=== PATIENT | male | born 1945 | race Caucasian/White ===

== ENCOUNTER 2021-12-05 11:32 | Inpatient (IN) | payer OTHER ==
[2021-12-05] VITALS (7 sets, daily range): BP systolic 88–100; BP diastolic 47–57
[~2021-12-05] VITALS: Ht 170.2 cm; Wt 79.4 kg
--- NOTE | 2021-12-05 11:34 | NUR ---
[id number] FRM HOME, SYMCOPAL EPISODE "COLLAPSED IN ELEVATOR" SYSTOLIC 80'S NOT ABLE TO EAT SINCE YESTERDAY. BS 229. PATIENT RECEIVED APPROXIMATELY 100ML OF NS RN ANGIOGRAPHY. TO ER BED 11, HOOKED TO MONITOR, NOTED LOW BLOOD PRESSURE, CHANGED TO HOSP GOWN, WARM BLANKET PROVIDED. PATIENT AAO x 3. NOTED WITH NEPHRO-ILEOSTOMY WITH BAG, DRAINING LIGHT YELLOW URINE. KEPT WARM AND COMFORTABLE. AWAITING MD ZAPATA
--- NOTE | 2021-12-05 11:35 | NUR ---
DR HARRINGTON AT BEDSIDE
--- NOTE | 2021-12-05 11:55 | NUR ---
[id number] PT 76 yrs female came by heidy from home awake and fallow command respiration spont c/o low bp
[2021-12-05 12:27] LABS: BASOPHILS % (AUTO) 0.1 % (0.0-2.0); EOSINOPHILS % (AUTO) 0.1 % (0.0-6.0); LYMPHOCYTES # (AUTO) 1.1 K/uL (0.8-4.8); LYMPHOCYTES % (AUTO) 9.8 % (20.0-44.0); MEAN CORPUSCULAR HGB CONC 32 g/dl (31.0-36.0); MEAN CORPUSCULAR VOLUME 97 fL (80-96); MONOCYTES # (AUTO) 0.6 K/uL (0.1-1.30); MONOCYTES % (AUTO) 5.5 % (2.0-12.0); NEUTROPHILS # (AUTO) 9.6 K/uL (1.8-8.9); NEUTROPHILS % (AUTO) 84.5 % (43.0-81.0); PLATELET COUNT (AUTO) 267 K/uL (150-450); WHITE BLOOD COUNT (AUTO) 11.3 K/uL (4.3-11.0)
[2021-12-05 12:31] LABS: RED BLOOD CELL COUNT(AUTO) 1.81 MIL/uL (4.5-6.0)
[2021-12-05 12:34] LABS: HEMATOCRIT 18 % (39-51); HEMOGLOBIN 5.5 g/dL (13.5-17.5)
--- NOTE | 2021-12-05 12:36 | NUR ---
BLOOD DROW BY LAB TACH
[2021-12-05 12:54] LABS: CALCIUM, SERUM 8.5 mg/dL (8.5-10.1); CARBON DIOXIDE 20 mmol/L (21-32); CHLORIDE 102 mmol/L (98-107); CREATININE 1.3 mg/dL (0.6-1.3); GLUCOSE 164 mg/dL (74-106); POTASSIUM 4.2 mmol/L (3.5-5.1); SODIUM SERUM 133 mmol/L (136-145); UREA NITROGEN, BLOOD 45 mg/dL (7-18)
[2021-12-05 12:59] LABS: ALANINE AMINOTRANSFERASE 20 U/L (12-78); ALBUMIN 2.3 g/dL (3.4-5.0); ALKALINE PHOSPHATASE 104 U/L (46-116); ASPARTATE AMINOTRANSFERASE 11 U/L (15-37); BILIRUBIN,DIRECT 0.1 mg/dL (0.0-0.2); BILIRUBIN,TOTAL 0.3 mg/dL (0.2-1.0); TOTAL PROTEIN, SERUM 5.6 g/dL (6.4-8.2)
--- NOTE | 2021-12-05 13:00 | NUR ---
DONOVAN RAYA SEND TO LAB
[2021-12-05] MEDS ORDERED: IOHEXOL-300 100 ML VIAL IV ONE (13:01)
[2021-12-05] MEDS ORDERED: IV NS 0.9% 250 ML IV ONE (13:01)
--- NOTE | 2021-12-05 13:31 | NUR ---
UA SEND TO [facility] PT HAD UROSCOPY STOMA
--- NOTE | 2021-12-05 13:35 | NUR ---
TO CT SCAN WITH CONTRAST
--- NOTE | 2021-12-05 13:38 | NUR ---
GLADY EPRP CALLED DR. SEGURA WILL CALL BACK.
--- NOTE | 2021-12-05 13:52 | NUR ---
DR. CUTLER, SURGEON [phone]
[2021-12-05 14:05] LABS: LYMPHOCYTES % (MANUAL) 10 % (16-48); MONOCYTES % (MANUAL) 3 % (0-11.0); NEUTROPHILS % (MANUAL) 87 (42-76)
[2021-12-05] MEDS ORDERED: ATOR10TA PO (14:15)
[2021-12-05] MEDS ORDERED: METF-440 PO (14:15)
[2021-12-05] MEDS ORDERED: METO5TAB2 PO (14:15)
[2021-12-05] MEDS ORDERED: CEPH500C2 PO (14:15)
[2021-12-05] MEDS ORDERED: ONDA8TAB65 PO (14:15)
[2021-12-05] MEDS ORDERED: CHOL100043 PO (14:15)
[2021-12-05] MEDS ORDERED: ENOX40DI9 SQ (14:15)
[2021-12-05] MEDS ORDERED: SENN-261 PO (14:15)
[2021-12-05] MEDS ORDERED: FURO-145 PO (14:15)
[2021-12-05] MEDS ORDERED: TRAM50TA2 PO (14:15)
[2021-12-05] MEDS ORDERED: ASPI-1169 PO (14:15)
[2021-12-05] MEDS ORDERED: OMEG1CAP40 PO (14:15)
[2021-12-05] MEDS ORDERED: LISI20TA30 PO (14:15)
[2021-12-05] MEDS ORDERED: POLY17PO4 PO (14:15)
[2021-12-05] MEDS ORDERED: HYDROCODONE/APAP 5/325MG TABLET PO PRN (14:30)
[2021-12-05] MEDS ORDERED: MAG HYDROX/AL HYDROX/SIMETH 30 ML UDC PO PRN (14:30)
[2021-12-05] MEDS ORDERED: DEXTROSE 50%-WATER 50 ML DISP.SYRIN IV PRN (14:30)
[2021-12-05] MEDS ORDERED: MAGNESIUM HYDROXIDE 30 ML UDC PO PRN (14:30)
--- NOTE | 2021-12-05 14:58 | NUR ---
BED 111
--- NOTE | 2021-12-05 15:37 | NUR ---
REPORT GIVEN TO JIMY JACKSON RN
[2021-12-05] MEDS: BLOOD SUGAR DIAGNOSTIC 1 EACH STRIP IN SCH ×2 (17:55→22:09)
--- NOTE | 2021-12-05 19:03 | NUR ---
RN closing note Patient was transferred to the JIMY department at 16:15 s/p syncopal episode . Patient is alert , oriented times 3 . Patient has very low Hemiglobin report was given to the DR Harley Rodriguez , order received at 10:05 to infuse 2 PRBC . Patient has urostomy r/t urinary b;adder cancer . Patient is very weak and has high risk for fall . Patient has rij tFA saline marcie 18 G . Bed side rails are up , bedis at lowest position. Call light within reach .
--- NOTE | 2021-12-05 19:42 | NUR ---
RN OPENING NOTES: RECEIVED PT IN BED AWAKE, ALERT/ORIENTED X4 AND VERBALLY RESPONSIVE. ON O2 AT 2L/MIN VIA N/C AND PT TOLERATED WELL. IV ACCESS ON RFA #18G INTACT AND PATENT. NO C/O PAIN OR DISCOMFORT. NO ACUTE DISTRESS. PT WILL RECEIVED BLOOD TRANSFUSION PER DR. ZHU. CONSENT SIGNED BY AT BEDSIDE. ALL SAFETY MEASURES IN PLACE. BED IN LOWEST POSITION AND LOCKED. SIDE RAILS UP X2, PLACE CALL LIGHT WITH IN REACH. WILL CONTINUE TO MONITOR.
--- NOTE | 2021-12-05 20:08 | NUR ---
RN NOTES: CALLED BLOOD BANK ABOUT BLOOD. MENTIONED NOT READY YET. THEY WILL CALL US WHEN IT'S READY.
--- NOTE | 2021-12-05 21:00 | NUR ---
RN NOTES: BLOOD TRANSFUSION STARTED. V/S STABLE. AFEBRILE. PT TOLERATED WELL. WILL CONTINUE TO MONITOR
--- NOTE | 2021-12-05 21:15 | NUR ---
RN NOTES: AFTER 15 MINUTES, PT REMAIN AFEBRILE, V/S STABLE. NO ADVERSE REACTIONS. WILL CONTINUE TO MONITOR
--- NOTE | 2021-12-05 22:10 | NUR ---
RN NOTES: PT'S BLOOD SUGAR 123. PT HAS HIS BLOOD GLUCOSE CHECK MACHINE. REFUSED TO CHECK WITH OUR MACHINE. NO COVERAGE GIVEN. NO S/S OF HYPER/HYPOGLYCEMIA. WILL CONTINUE TO MONITOR
[2021-12-06] VITALS: BP 102/57
--- NOTE | 2021-12-06 00:09 | NUR ---
RN NOTES: BLOOD TRANSFUSION COMPLETED. PT TOLERATED WELL. NO ADVERSE REACTIONS NOTED. V/S STABLE. WILL CONTINUE TO MONITOR
[2021-12-06] MEDS: IV NS 0.9% 1,000 ML IV PRN ×2 (00:10→16:13)
[2021-12-06] MEDS: ACETAMINOPHEN 325 MG TABLET PO PRN (00:32)
--- NOTE | 2021-12-06 00:35 | NUR ---
RN NOTES: PT C/O GENERALIZED BODY ACHE, TYLENOL 325 MG 2 TABS GIVEN AND PT TOLERATED WELL. WILL CONTINUE TO MONITOR
[2021-12-06 04:00] VITALS: BP 101/52
--- NOTE | 2021-12-06 06:45 | NUR ---
RN CLOSING NOTES: PT IN BED AWAKE, ALERT/ORIENTED X4 AND VERBALLY RESPONSIVE. ON O2 AT 2L/MIN VIA N/C AND PT TOLERATED WELL. O2 SAT 100%. IV ACCESS ON RAC #18G AND RT WRIST#20G INTACT AND PATENT. NO S/S OF INFILTRATIONS. RUNNING NS AT 75CC/HR. NO C/O PAIN OR DISCOMFORT. NO ACUTE DISTRESS. PT HAS ILEOSTOMY BAG ON RT QUADRANT ABDOMEN. RUNNING BY GRAVITY. ALL DUE MEDS GIVEN ORDERED. ALL SAFETY MEASURES IN PLACE. BED IN LOWEST POSITION AND LOCKED. SIDE RAILS UP X2, PLACE CALL LIGHT WITH IN REACH. WILL ENDORSE TO MORNING SHIFT NURSE.
[2021-12-06] MEDS: BLOOD SUGAR DIAGNOSTIC 1 EACH STRIP IN SCH ×4 (07:30→22:28)
--- NOTE | 2021-12-06 07:30 | NUR ---
RN OPENING NOTE PATIENT IS IN BED AWAKE, ALERT, ORIENTED X 4. WITH OXYGEN VIA NASAL CANNULA AT 2L/MIN, SATTING AT 97%. SINUS RHYTHM ON FILLER AND TRIMMER. WITH BLADDER OSTOMY POUCH INTACT AND ATTACHED TO URINE BAG, DRAINING TO A CLEAR YELLOW URINE. WITH RIGHT WRIST GAUGE 20 IV LOCK INTACT AND PATENT.WITH RIGHT ANTECUBITAL IV GAUGE 18G INFUSING WITH NS AT 75 ML/HR. NO SIGNS OF INFILTRATION NOTED ON BOTH IV SITES. DENIES PAIN OR DIZZINESS. BREATHING UNLABORED. STATES THAT HE DOESN'T WANT BLOOD DRAW DONE, BUT I EXPLAINED TO HIM WHY IT SHOULD BE DONE. PATIENT STILL REFUSES. ADDITIONALLY, PATIENT REFUSES UNIT'S ACCUCHECK AND PREFERS TO USE HIS OWN MACHINE. ALL HOSPITAL PRECAUTIONS IN PLACE, BED IS LOCKED IN LOWEST POSITION, 3 SIDE RAILS UP, CALL LIGHT WITHIN REACH. WILL CONTINUE TO MONITOR THROUGHOUT SHIFT.
[2021-12-06 08:00] VITALS: BP 105/55
--- NOTE | 2021-12-06 08:00 | NUR ---
RN NOTE PATIENT REFUSED ACCUCHECKING AND PREFERS TO USE OWN MACHINE, WHICH REGISTERED 124MG/DL.
[2021-12-06] MEDS: PANTOPRAZOLE 40 MG TABLET.DR PO SCH (08:15)
[2021-12-06 11:18] LABS: BASOPHILS % (AUTO) 0.4 % (0.0-2.0); EOSINOPHILS % (AUTO) 0.2 % (0.0-6.0); LYMPHOCYTES # (AUTO) 0.9 K/uL (0.8-4.8); LYMPHOCYTES % (AUTO) 14.6 % (20.0-44.0); MEAN CORPUSCULAR HGB CONC 33 g/dl (31.0-36.0); MEAN CORPUSCULAR VOLUME 93 fL (80-96); MONOCYTES # (AUTO) 0.4 K/uL (0.1-1.30); MONOCYTES % (AUTO) 5.8 % (2.0-12.0); NEUTROPHILS # (AUTO) 4.9 K/uL (1.8-8.9); PLATELET COUNT (AUTO) 234 K/uL (150-450); RED BLOOD CELL COUNT(AUTO) 2.17 MIL/uL (4.5-6.0); WHITE BLOOD COUNT (AUTO) 6.2 K/uL (4.3-11.0)
[2021-12-06 11:26] LABS: HEMOGLOBIN 6.6 g/dL (13.5-17.5)
[2021-12-06 11:27] LABS: HEMATOCRIT 20 % (39-51)
[2021-12-06 12:00] LABS: CALCIUM, SERUM 8.7 mg/dL (8.5-10.1); CREATININE 0.7 mg/dL (0.6-1.3); MAGNESIUM 1.5 mg/dL (1.8-2.4); PHOSPHORUS 2.9 mg/dL (2.5-4.9); POTASSIUM 3.6 mmol/L (3.5-5.1)
--- NOTE | 2021-12-06 12:14 | NUR ---
RN NOTE PATIENT REFUSED ACCUCHECKING AND PREFERS TO USE OWN MACHINE. BLOOD SUGAR READING IS AT 125 MG/DL.
[2021-12-06 12:15] VITALS: BP 109/62
[2021-12-06 16:00] VITALS: BP 119/66
--- NOTE | 2021-12-06 17:59 | NUR ---
RN NOTE PATIENT REFUSED ACCUCHECKING. PREFERS TO USE OWN MACHINE, 118 MG/DL.
--- NOTE | 2021-12-06 18:51 | NUR ---
RN CLOSING NOTE PATIENT IS RESTING COMFORTABLY IN BED AND REMAINS STABLE THROUGHOUT THE SHIFT. PATIENT IS STILL ON O2 VIA NASAL CANNULA AT 2L/MIN SATTING AT 97%. DENIES PAIN, BREATHING UNLABORED, AND NOT IN ANY FORM OF DISTRESS. PATIENT IS FOR TRANSFER TO [facility] BUT IS STILL AWAITING ROOM AVAILABILITY. RIGHT ANTECUBITAL IV IS INTACT AND PATENT. BED IS LOCKED IN LOWEST POSITION, 3 SIDE RAILS UP, CALL LIGHT WITHIN REACH. WILL ENDORSE TO TRAIN CONTROLLER NURSE.
--- NOTE | 2021-12-06 19:10 | NUR ---
RN OPENING NOTE PATIENT IS IN BED AWAKE, ALERT, ORIENTED X 4. WITH OXYGEN VIA NASAL CANNULA AT 2L/MIN, SATTING AT 97%. SINUS RHYTHM ON BUSINESS RECORDS MANAGER. WITH BLADDER OSTOMY POUCH INTACT AND ATTACHED TO URINE BAG, DRAINING TO A CLEAR YELLOW URINE. WITH RIGHT ANTECUBITAL IV GAUGE 18G INFUSING WITH NS AT 75 ML/HR. NO SIGNS OF INFILTRATION NOTED ON IV SITES. DENIES PAIN OR DIZZINESS. BREATHING UNLABORED. STATES THAT HE DOESN'T WANT BLOOD DRAW DONE, BUT I EXPLAINED TO HIM WHY IT SHOULD BE DONE. PATIENT STILL REFUSES. ADDITIONALLY, PATIENT REFUSES UNIT'S ACCU CHECK AND PREFERS TO USE HIS OWN MACHINE. ALL HOSPITAL PRECAUTIONS IN PLACE, BED IS LOCKED IN LOWEST POSITION, 3 SIDE RAILS UP, CALL LIGHT WITHIN REACH. WILL CONTINUE TO MONITOR THROUGHOUT SHIFT.
[2021-12-06 20:00] VITALS: BP 96/59
[2021-12-06] MEDS: INSULIN REGULAR, HUMAN 100 UNIT/ML 3 ML VIAL SQ PRN (22:34)
[2021-12-07] VITALS (11 sets, daily range): BP systolic 96–125; BP diastolic 52–73
--- NOTE | 2021-12-07 06:43 | NUR ---
RN NOTES CLOSING NOTE PATIENT IS RESTING COMFORTABLY IN BED AND REMAINS STABLE THROUGHOUT THE SHIFT. PATIENT IS STILL ON O2 VIA NASAL CANNULA AT 2L/MIN SATTING AT 97%. DENIES PAIN, BREATHING UNLABORED, AND NOT IN ANY FORM OF DISTRESS. PATIENT IS FOR TRANSFER TO [facility] BUT IS STILL AWAITING ROOM AVAILABILITY. RIGHT ANTECUBITAL IV IS INTACT AND PATENT. BED IS LOCKED IN LOWEST POSITION, 3 SIDE RAILS UP, CALL LIGHT WITHIN REACH. WILL ENDORSE TO METER READERS SUPERVISOR NURSE.
--- NOTE | 2021-12-07 07:31 | NUR ---
RN NOTES OPENING NOTE RECIEVED PATIENT REPORT FROM NIGHTSHIFT. PATIENT IS RESTING COMFORTABLY IN BED. CURRENTLY ON OXYGEN VIA NASAL CANNULA AT 2L/MIN SATTING AT 97%. DENIES PAIN, BREATHING UNLABORED, AND NOT IN ANY FORM OF DISTRESS. PATIENT IS FOR TRANSFER TO [facility] BUT IS STILL AWAITING ROOM AVAILABILITY. NO IV ACCESS NOTED. BED IS LOCKED IN LOWEST POSITION, 3 SIDE RAILS UP, CALL LIGHT WITHIN REACH. WILL CONTINUE PLAN OF CARE AND ANTICIPATE NEEDS.
[2021-12-07] MEDS: PANTOPRAZOLE 40 MG TABLET.DR PO SCH (07:48)
[2021-12-07] MEDS: BLOOD SUGAR DIAGNOSTIC 1 EACH STRIP IN SCH ×4 (07:48→22:09)
[2021-12-07] MEDS: INSULIN REGULAR, HUMAN 100 UNIT/ML 3 ML VIAL SQ PRN ×2 (07:57→22:12)
--- NOTE | 2021-12-07 08:09 | NUR ---
RN NOTE DURING 0730 BLOOD SUGAR CHECK PATIENTS SUGAR WAS NOTED AT 143 G/DL. PER SLIDING SCALE PROTOCOL PATIENT WAS TO RECIEVE TWO UNITS OF REGULAR INSULIN. BEFORE INSULIN WAS ADMINISTERED PATIENT EXPRESSED CONCERNS OF HIS SUGAR DROPPING "TOO LOW". PATIENT REFUSED INSULIN. NO DISTRESS NOTED. WILL CONTINUE PLAN OF CARE AND ANTICIPATE NEEDS.
--- NOTE | 2021-12-07 11:34 | NUR ---
radiotelegrapher note hg 6.[address] medina with order i unit prbc ,order carried out
--- NOTE | 2021-12-07 16:48 | NUR ---
CLINICAL LAB ASSISTANT NOTE FAMILY OF PATIENT AND PATIENT REFUSED TO CHANGE UROSTOMY BAG STATED ONLY WOUND CARE NURSE WILL DO IT .SPOKE WITH JESSICA GELLERRN TRANSFER NURSE STATED THAT WILL SEE PATIENT ON FRIDAY, SPOKE WITH JOSEMANUEL WORK CAR OPERATOR NOTIFIED THAT WE OFFERED TO CHANGE UROSTOMY BAG BUT PATIENT WANTS TO BE DONE ONLY WOUND CARE NURSE , WILL F\U
--- NOTE | 2021-12-07 17:52 | NUR ---
PATIENT REFUSED INSULIN THROUGHOUT SHIFT. STATES "I AM NOT HUNGRY I AM NOT EATING, WHAT FOR I NEED INSULIN?" PATIENT ALSO EXPRESSED CONCERNS THAT BLOOD SUGAR MIGHT DIP "TOO LOW" WITH ADMINISTRATION OF INSULIN. PATIENT IS CHECKING BLOOD SUGAR ON HIS PERSONAL IMPLANTED DEVICE, STATES "THIS NUMBER IS FINE FOR ME." LATEST BLOOD SUGAR READING WAS 131 G/DL. WILL CONTINUE PLAN OF CARE AND ANTICIPATE NEEDS.
--- NOTE | 2021-12-07 18:37 | NUR ---
RN OPENING NOTE PATIENT IS RESTING COMFORTABLY IN BED ON ROOM AIR WITH OXYGEN SATURATION IN THE HIGH 90S-100%. DENIES PAIN, BREATHING UNLABORED, AND NOT IN ANY FORM OF DISTRESS. BLADDER OSTOMY POUCH DRAINING CLEAR YELLOW URINE. SKIN IS INTACT EXCEPT FOR OSTOMY SITE IN RIGHT LOWER ABDOMINAL QUADRANT. IV ACCESS NOTED ON LEFT UPPER ARM MIDLINE, PATENT AND FLUSHING EASILY WITH NO RESISTANCE. PATIENT IS FOR TRANSFER TO [facility] BUT IS STILL AWAITING OPEN BED. WILL ENDORSE TO NIGHTSHIFT RN FOR CONTINUITY OF CARE.
--- NOTE | 2021-12-07 19:30 | NUR ---
ARCHITECTURE FACULTY MEMBER OPENING NOTE RECEIVED PATIENT A/OX4. SPOUSE IN THE ROOM. PATIENT IS RESTING COMFORTABLY IN BED ON 2L OF O2 VIA NC. TOLERATING WELL WITH GREATER THAN 95%.DENIES PAIN, BREATHING UNLABORED, AND NOT IN ANY FORM OF DISTRESS. BLADDER UROSTOMY POUCH DRAINING CLEAR YELLOW URINE. SKIN IS INTACT EXCEPT FOR UROSTOMY SITE IN RIGHT LOWER ABDOMINAL QUADRANT. IV ACCESS NOTED ON LEFT UPPER ARM MIDLINE 18G, PATENT AND FLUSHING EASILY WITH NO RESISTANCE.SIDE RAILS UPX3.WILL CONTINUE TO MONITOR
--- NOTE | 2021-12-07 22:14 | NUR ---
LIME KILN WORKER HELPER NOTE BS 201. PT OPTED TO USE HIS PERSONAL GLUCOMETER, AND REFUSED ANY INSULIN COVERAGE AT THIS TIME
--- NOTE | 2021-12-07 23:00 | NUR ---
OLIVE PITTER NOTES ASSISTED PATIENT TO THE RESTROOM. PROVIDED PATIENT BATH/KATHI CARE ITEMS FOR INDEPENDENT BATH. COMPLETE LINEN CHANGE WHILE PATIENT IN RESTROOM.
--- NOTE | 2021-12-07 23:05 | NUR ---
RN NOTES ENDED BLOOD TRANSFUSION @0640, VITAL SIGNS REMAINED WNL, NO BLOOD TRANSFUSION REACTION NOTED. WILL CONTINUE TO MONITOR AND ASSESS FOR ANY BLOOD TRANSFUSION REACTION POST PROCEDURE. CARBOY FILLER MADE AWARE.
--- NOTE | 2021-12-07 23:05 | NUR ---
RN NOTES ENDED BLOOD TRANSFUSION @2300, VITAL SIGNS REMAINED WNL, NO BLOOD TRANSFUSION REACTION NOTED. WILL CONTINUE TO MONITOR AND ASSESS FOR ANY BLOOD TRANSFUSION REACTION POST PROCEDURE. ICE CREAM MAN MADE AWARE.
[2021-12-08] VITALS (12 sets, daily range): BP systolic 90–108; BP diastolic 36–61
[2021-12-08] MEDS: IV NS 0.9% 1,000 ML IV PRN ×2 (03:27→18:48)
--- NOTE | 2021-12-08 04:00 | NUR ---
RN NOTES PATIENT REMAINED TO BE IN NO SIGNS OF ACUTE RESPIRATORY DISTRESS , SAFE ENVIRONMENT MAINTAINED FOR PT. AM PATIENT CARE RENDERED. WILL CONTINUE TO MONITOR AND REASSESS FOR ANY CHANGES THROUGHOUT THE SHIFT.
--- NOTE | 2021-12-08 06:50 | NUR ---
CONSTRUCTION OR LEAK GANG LABORER CLOSING NOTE PATIENT A/OX4. PATIENT IS RESTING COMFORTABLY IN BED CURRENTLY ON ROOM AIR TOLERATING WELL WITH GREATER THAN 95%.NO SIGNS OF DISTRESS, BREATHING UNLABORED.STATUS POST BLOOD TRANSFUSION 1 UNIT RBC NO NEW ORDERS FOR REDRAW OF CBC AND BMP PER MUTUEL DEPARTMENT MANAGER MD ([place]). SAFETY MEASURES IMPLEMENTED. ALL DUE MEDICATION GIVEN ORDERED. PATIENT KEPT CLEAN AND COMFORTABLE DURING SHIFT. VITAL SIGNS STABLE. ENDORSING TO MORNING FOR CONTINUITY OF CARE. POSSIBLE TRANSFER TO [facility] ONCE BED AVAILABLE.
--- NOTE | 2021-12-08 07:23 | NUR ---
PROTOCOL MANAGER OPENING NOTE RECEIVED PATIENT A/OX4. . PATIENT IS RESTING COMFORTABLY IN BED ON ROOM AIR. TOLERATING WELL.DENIES PAIN, BREATHING UNLABORED, AND NOT IN ANY FORM OF DISTRESS. BLADDER UROSTOMY POUCH DRAINING CLEAR YELLOW URINE. SKIN IS INTACT EXCEPT FOR UROSTOMY SITE IN RIGHT LOWER ABDOMINAL QUADRANT. IV ACCESS NOTED ON LEFT UPPER ARM MIDLINE 18G, PATENT AND FLUSHING EASILY WITH NO RESISTANCE.SIDE RAILS UPX3.
[2021-12-08] MEDS: BLOOD SUGAR DIAGNOSTIC 1 EACH STRIP IN SCH ×4 (07:38→22:03)
--- NOTE | 2021-12-08 07:38 | NUR ---
RN NOTE PATIENT REFUSES TO USE HOSPITALS GLUCOMETER AND USES HIS OWN DEVICE. ASKED PATIENT TO CHECK GLUCOSE READING OF 174MG/dL. PATIENT STATES HE WILL NOT BE TAKING INSULIN TODAY PER HIS PROVIDER IN [place] HER SHOULD NOT HAVE INSULIN FOR 2 DAYS. WILL INFORM PROVIDER
[2021-12-08 07:40] LABS: BASOPHILS % (AUTO) 0.3 % (0.0-2.0); LYMPHOCYTES # (AUTO) 0.4 K/uL (0.8-4.8); LYMPHOCYTES % (AUTO) 3.5 % (20.0-44.0); MEAN CORPUSCULAR HGB CONC 33 g/dl (31.0-36.0); MEAN CORPUSCULAR VOLUME 95 fL (80-96); MONOCYTES # (AUTO) 0.5 K/uL (0.1-1.30); MONOCYTES % (AUTO) 4.3 % (2.0-12.0); NEUTROPHILS # (AUTO) 10.7 K/uL (1.8-8.9); NEUTROPHILS % (AUTO) 91.9 % (43.0-81.0); PLATELET COUNT (AUTO) 183 K/uL (150-450); RED BLOOD CELL COUNT(AUTO) 2.07 MIL/uL (4.5-6.0); WHITE BLOOD COUNT (AUTO) 11.6 K/uL (4.3-11.0)
[2021-12-08] MEDS: PANTOPRAZOLE 40 MG TABLET.DR PO SCH (07:42)
[2021-12-08 07:48] LABS: HEMATOCRIT 20 % (39-51); HEMOGLOBIN 6.4 g/dL (13.5-17.5)
--- NOTE | 2021-12-08 17:46 | NUR ---
RN NOTE PATIENT REFUSES TO USE HOSPITALS GLUCOMETER AND USES HIS OWN DEVICE. ASKED PATIENT TO CHECK GLUCOSE READING OF 142MG/dL. PATIENT STATES HE WILL NOT BE TAKING INSULIN TODAY PER HIS PROVIDER IN [place] HER SHOULD NOT HAVE INSULIN FOR 2 DAYS. WILL INFORM PROVIDER
--- NOTE | 2021-12-08 19:09 | NUR ---
ASSOCIATE PROFESSOR OF ENGLISH CLOSING NOTE PATIENT A/OX4. PATIENT IS RESTING COMFORTABLY IN BED CURRENTLY ON ROOM AIR TOLERATING WELL WITH GREATER THAN 95%.NO SIGNS OF DISTRESS, BREATHING UNLABORED.STATUS POST BLOOD TRANSFUSION 1 UNIT PRBC. SAFETY MEASURES IMPLEMENTED. ALL DUE MEDICATION GIVEN ORDERED. PATIENT KEPT CLEAN AND COMFORTABLE DURING SHIFT. VITAL SIGNS STABLE. WILL ENDORSE TO NIGHT NURSE FOR GIA.
--- NOTE | 2021-12-08 19:36 | NUR ---
RN NOTES RECEIVED PT FOR CONTINUITY OF CARE. PATIENT A/OX4 IN NO S/SX OF ACUTE DISTRESS AT THIS TIME; CURRENTLY ON ROOM AIR ; WITH 02 SAT >95% AT THIS TIME.WITH IV ACCESS PATENT, INTACT AND FLUSHING WELL. WITH RUNNING NS@75CC/HR. AT BEDSIDE. WILL ENSURE SAFETY MEASURES WITHIN THE SHIFT. PATIENT BED ALARM IS ON. HEAD OF BED ELEVATED. BED IS LOCKED, IN LOWEST POSITION AND SIDE RAILS UP. CALL LIGHT WITHIN REACH OF THE PATIENT.WILL CONTINUE TO MONITOR AND REASSESS FOR ANY CHANGES AND WILL CARRY OUT ANY ONGOING AND ACTIVE MD ORDER.
[2021-12-08] MEDS: INSULIN REGULAR, HUMAN 100 UNIT/ML 3 ML VIAL SQ PRN (22:04)
--- NOTE | 2021-12-08 22:04 | NUR ---
RN NOTES accu check done; pt preferred to use his own glucometer; readinmg/dl, no insulin coverage needed per sliding scale.
[2021-12-09] VITALS (19 sets, daily range): BP systolic 80–115; BP diastolic 40–85
--- NOTE | 2021-12-09 06:54 | NUR ---
RN CLOSING NOTE: PATIENT REMAINS IN ROOM IN NO SIGNS OF RESPIRATORY DISTRESS, PATIENT STILL ON ROOM AIR ;TOLERATING WELL SATURATING @ >95% SP02. SAFETY MEASURES IMPLEMENTED, BED IN LOWEST POSITION, LOCKED, SIDE RAILS UP, CALL LIGHT WITHIN REACH. ALL NEEDS AND ORDERS ADDRESSED DURING THE SHIFT. IV ACCESS MAINTAINED INTACT, SECURED AND FLUSHING WELL. ALL DUE MEDS GIVEN ORDERED & SCHEDULED ; PATIENT TOLERATED WELL. PATIENT KEPT CLEAN AND COMFORTABLE WITHIN THE SHIFT. PATIENT ENDORSED TO INCOMING SHIFT RN WITH STABLE VITAL SIGN AND FOR CONTINUITY OF CARE.
--- NOTE | 2021-12-09 07:20 | NUR ---
RN NOTE RECEIVED PATIENT IN BED RESTING ALERT ORIENTED X4 VERBALLY RESPONSIVE ON 2L OXYGEN VIA NASAL CANNULA O2:91% IV SITE IS ON LEFT UPPER ARM MIDLINE INTACT PATENT ON IV HYDRATION NS 75CC/HR,UROSTOMY BAG IN PLACE,SAFETY MEASURE IMPLEMENT BED IN LOW POSITION AND LOCKED,CALL LIGHT WITHIN REACH CONTINUE TO MONITOR.
--- NOTE | 2021-12-09 07:30 | NUR ---
RN NOTE ACCU CHECK DONE PATIENT PREFERRED TO USE HIS ON OWN GLUCOMETER,READING 147 ,WILL GIVE 2 UNIT INSULIN PER SLIDING SCALE. CONTINUE TO MONITOR.
[2021-12-09] MEDS: BLOOD SUGAR DIAGNOSTIC 1 EACH STRIP IN SCH ×4 (07:33→23:51)
[2021-12-09] MEDS: PANTOPRAZOLE 40 MG TABLET.DR PO SCH (07:36)
[2021-12-09] MEDS: INSULIN REGULAR, HUMAN 100 UNIT/ML 3 ML VIAL SQ PRN ×4 (07:56→23:55)
[2021-12-09] MEDS: IV NS 0.9% 1,000 ML IV PRN (09:31)
[2021-12-09 10:45] LABS: BASOPHILS % (AUTO) 0.1 % (0.0-2.0); EOSINOPHILS % (AUTO) 0.1 % (0.0-6.0); LYMPHOCYTES # (AUTO) 0.2 K/uL (0.8-4.8); MEAN CORPUSCULAR HGB CONC 33 g/dl (31.0-36.0); MEAN CORPUSCULAR VOLUME 94 fL (80-96); MONOCYTES # (AUTO) 0.2 K/uL (0.1-1.30); MONOCYTES % (AUTO) 3.9 % (2.0-12.0); NEUTROPHILS # (AUTO) 5.7 K/uL (1.8-8.9); NEUTROPHILS % (AUTO) 91.9 % (43.0-81.0); PLATELET COUNT (AUTO) 126 K/uL (150-450); WHITE BLOOD COUNT (AUTO) 6.2 K/uL (4.3-11.0)
[2021-12-09 10:51] LABS: HEMATOCRIT 17 % (39-51); HEMOGLOBIN 5.5 g/dL (13.5-17.5)
--- NOTE | 2021-12-09 12:10 | NUR ---
RN NOTE START BLOOD TRANSFUSION AT THIS TIME,CONTINUE TO MONITOR
[2021-12-09 13:17] LABS: LYMPHOCYTES % (MANUAL) 5 % (16-48); MONOCYTES % (MANUAL) 2 % (0-11.0); NEUTROPHILS % (MANUAL) 93 (42-76)
[2021-12-09] MEDS: ONDANSETRON HCL/PF 4 MG/2 ML VIAL IVP PRN (14:45)
--- NOTE | 2021-12-09 15:50 | NUR ---
RN NOTE BLOOD TRANSFUSION DONE AT THIS TIME,CONTINUE TO MONITOR.
--- NOTE | 2021-12-09 18:59 | NUR ---
RN NOTE PATIENT REMAINS ALERT ORIENTED X4 VERBALLY RESPONSIVE NO SOB NOTED ON 2L OXYGEN VIA NASAL CANNULA O2;98%,BLOOD TRANSFUSION DONE,ON IV HYDRATION NS 75CC/HR IV SITE IS ON LEFT UPPER ARM MIDLINE INTACT PATENT,ALL DUE MEDS GIVEN MD ORDERED,KEPT CALL LIGHT WITHIN REACH,ENDORSE NEXT COMING SHIFT FOR CONTINUATION OF CARE
--- NOTE | 2021-12-09 21:02 | NUR ---
independent living specialist Opening Note Pt received in bed, awake, A&O x4, with and cousin at bedside. Pt is calm, cooperative. Pt currently on NC 2L with no s/s of resp distress, no SOB or cough, has non-labored and equal breathing; appears comfortable; current O2sat at 100%. Pt attached to external monitor showing SR with HR of 77. Pt noted to have a urostomy; appears intact and patent, draining clear and yellow urine. IV access on KONSTANTIN 20G with NS running at 75 ml/hr; IV intact and patent, flushes easily with no resistance. Bed in lowest position, call light within reach, side rails up x3. Will continue to monitor throughout the night.
[2021-12-09 21:22] LABS: BASOPHILS % (AUTO) 0.2 % (0.0-2.0); EOSINOPHILS % (AUTO) 0.1 % (0.0-6.0); LYMPHOCYTES # (AUTO) 0.4 K/uL (0.8-4.8); LYMPHOCYTES % (AUTO) 10.5 % (20.0-44.0); MEAN CORPUSCULAR HGB CONC 34 g/dl (31.0-36.0); MEAN CORPUSCULAR VOLUME 90 fL (80-96); MONOCYTES # (AUTO) 0.2 K/uL (0.1-1.30); NEUTROPHILS # (AUTO) 3.4 K/uL (1.8-8.9); NEUTROPHILS % (AUTO) 83.2 % (43.0-81.0); PLATELET COUNT (AUTO) 124 K/uL (150-450); RED BLOOD CELL COUNT(AUTO) 2.12 MIL/uL (4.5-6.0)
[2021-12-09 21:31] LABS: HEMATOCRIT 19 % (39-51); HEMOGLOBIN 6.4 g/dL (13.5-17.5)
--- NOTE | 2021-12-09 21:35 | NUR ---
2135 Critical Hgb 6.4 reported to GRACIELA Chester with order to transfuse one unit PRBC. Order noted.
[2021-12-09 22:23] LABS: WHITE BLOOD COUNT (AUTO) 4.1 K/uL (4.3-11.0)
[2021-12-09 22:28] LABS: BAND % (MANUAL) 4 % (0.0-5.0); LYMPHOCYTES % (MANUAL) 10 % (16-48); MONOCYTES % (MANUAL) 2 % (0-11.0); NEUTROPHILS % (MANUAL) 84 (42-76)
--- NOTE | 2021-12-09 22:55 | NUR ---
RN Note Blood transfusion with PRBC started with pre-infusion VS as follows: BP 108/57, HR 79, 97%O2sat, temp 97.7, RR 20
--- NOTE | 2021-12-09 23:13 | NUR ---
RN Note 15-minute VS after initiation of PRBC transfusion are as follows: BP: 99/59, HR 78, temp 98.8, O2sat 100%, RR 20.
--- NOTE | 2021-12-09 23:41 | NUR ---
RN Note 30-minute VS after initiation of transfusion are as follows: BP 106/56, HR 75, temp 98.4, 100%O2sat, RR 22.
--- NOTE | 2021-12-09 23:51 | NUR ---
Rn Note Pt has own BG machine; BG is 146 mg/dl
[2021-12-10] VITALS (8 sets, daily range): BP systolic 100–160; BP diastolic 56–93
--- NOTE | 2021-12-10 00:21 | NUR ---
RN Note 2nd 30-minute VS are as follows: BP 108/66, HR 76, temp 98.4, 100%O2sat, RR 20.
--- NOTE | 2021-12-10 01:15 | NUR ---
RN Note 1st 1-hr VS are as follows: BP 112/63, HR 78, temp 98.1, 99%O2sat , RR 18.
--- NOTE | 2021-12-10 02:19 | NUR ---
RN Note Post-transfusion VS are as follows: BP 117/68, HR 83, temp 98.0, O2sat 100%, RR 18. Pt tolerated transfusion well with no s/s of pruritus, chest pain, SOB, etc.
[2021-12-10] MEDS: ONDANSETRON HCL/PF 4 MG/2 ML VIAL IVP PRN ×2 (02:59→12:33)
--- NOTE | 2021-12-10 02:59 | NUR ---
RN Note Pt reports of feeling nauseous and dizzy. Pt administered ondansetron 4 mg. Will monitor for effectiveness.
[2021-12-10] MEDS: IV NS 0.9% 1,000 ML IV PRN (05:02)
--- NOTE | 2021-12-10 06:13 | NUR ---
EXECUTIVE STAFF ASSISTANT CLOSING NOTE PT REMAINS IN BED, AWAKE, A&O X4, CALM, COOPERATIVE. PER PT, UNABLE TO SLEEP LAST NIGHT. PT REMAINS ON 2L NC WITH O2SAT RANGING FROM 99%-100%; PT HAD EPISODE OF SOB WHEN GETTING FROM THE BED TO THE BEDSIDE COMMODE AND BACK; OTHERWISE HAD NO S/S OF RESP DISTRESS, NON-LABORED AND EQUAL BREATHING. ATTACHED TO EXTERNAL MONITOR AND WAS SR-ST, WITH HR RANGING FROM 75-110; HR NOTED TO GO UP WHEN HE WAS USING BEDSIDE COMMODE. KONSTANTIN 20G INTACT AND PATENT; FLUSHES EASILY WITH NO RESISTANCE; HAS NS RUNNING AT 75 ML/HR. BED IN LOWEST POSITION, CALL LIGHT WITHIN REACH, SIDE RAILS UP X3. WILL ENDORSE TO DAYSHIFT NURSE TO CONTINUE CARE.
[2021-12-10 06:51] LABS: BASOPHILS % (AUTO) 0.2 % (0.0-2.0); EOSINOPHILS % (AUTO) 0.1 % (0.0-6.0); HEMATOCRIT 21 % (39-51); LYMPHOCYTES # (AUTO) 0.4 K/uL (0.8-4.8); LYMPHOCYTES % (AUTO) 7.2 % (20.0-44.0); MEAN CORPUSCULAR HGB CONC 33 g/dl (31.0-36.0); MEAN CORPUSCULAR VOLUME 91 fL (80-96); MONOCYTES # (AUTO) 0.3 K/uL (0.1-1.30); MONOCYTES % (AUTO) 5.1 % (2.0-12.0); NEUTROPHILS % (AUTO) 87.4 % (43.0-81.0); PLATELET COUNT (AUTO) 120 K/uL (150-450); RED BLOOD CELL COUNT(AUTO) 2.32 MIL/uL (4.5-6.0); WHITE BLOOD COUNT (AUTO) 5.7 K/uL (4.3-11.0)
--- NOTE | 2021-12-10 07:27 | NUR ---
RN NOTES RECEIVED PT FOR CONTINUITY OF CARE. PATIENT A/OX4 IN NO S/SX OF ACUTE DISTRESS AT THIS TIME; CURRENTLY 2L; .WITH IV ACCESS PATENT, INTACT AND FLUSHING WELL. WITH RUNNING NS@75CC/HR. AT BEDSIDE. WILL ENSURE SAFETY MEASURES WITHIN THE SHIFT. PATIENT BED ALARM IS ON. HEAD OF BED ELEVATED. BED IS LOCKED, IN LOWEST POSITION AND SIDE RAILS UP. CALL LIGHT WITHIN REACH OF THE PATIENT.
[2021-12-10] MEDS: PANTOPRAZOLE 40 MG TABLET.DR PO SCH ×2 (07:30→08:19)
[2021-12-10 07:38] LABS: ALBUMIN 1.6 g/dL (3.4-5.0); BILIRUBIN,TOTAL 0.5 mg/dL (0.2-1.0); CALCIUM, SERUM 7.5 mg/dL (8.5-10.1); CREATININE 1.1 mg/dL (0.6-1.3); MAGNESIUM 1.6 mg/dL (1.8-2.4); PHOSPHORUS 2.9 mg/dL (2.5-4.9); POTASSIUM 3.9 mmol/L (3.5-5.1); TOTAL PROTEIN, SERUM 4.5 g/dL (6.4-8.2)
--- NOTE | 2021-12-10 08:00 | NUR ---
RN NOTE RECEIVED BP READING FOR 160/93, RECHECKED BLOOD PRESSURE MANUAL CUFF RECEIVED READING OF 100/71.
[2021-12-10] MEDS: BLOOD SUGAR DIAGNOSTIC 1 EACH STRIP IN SCH ×2 (08:22→12:46)
[2021-12-10] MEDS: INSULIN REGULAR, HUMAN 100 UNIT/ML 3 ML VIAL SQ PRN ×2 (08:32→12:49)
[2021-12-10] MEDS: ACETAMINOPHEN 325 MG TABLET PO PRN (11:10)
--- NOTE | 2021-12-10 11:20 | NUR ---
RN NOTE INFORMED SAME HOME MEDICATION NEEDS TO BE RECONCILED
[2021-12-10] MEDS: Magnesium 1GM/D5W 100ML PREMIX 100 ML IV SCH ×2 (12:46→13:45)
[2021-12-10] MEDS ORDERED: LORAZEPAM 0.5 MG TABLET PO PRN (15:30)
--- NOTE | 2021-12-10 15:57 | NUR ---
RN NOTE PATIENT IS BEING TRANSFERRED TO [facility] ROOM 5313 CALLED AND GAVE REPORT TO RAYMOND GELLER PATIENT IS TO BE ADMITTED INTO ROOM 5313.
--- NOTE | 2021-12-10 16:17 | NUR ---
RN NOTE PATIENT WAS PICKED UP BY CLINICAL SOCIAL WORK THERAPIST TAKEN TO [facility] AND FAM[facility] AT BEDSIDE
[2021-12-10] MEDS ORDERED: METFORMIN 500 MG TABLET PO SCH (17:00)
[2021-12-11] MEDS ORDERED: ATORVASTATIN 10 MG TABLET PO SCH (09:00)
[2021-12-11] MEDS ORDERED: LISINOPRIL (20MG) 20 MG TABLET PO SCH (09:00)
== END 2021-12-10 16:21 | disposition short-term general hospital (02) | DRG 378 ==
LOC: ER 11:34 → TELE1 15:29
PROC: 30233N1 Transfusion of Nonautologous Red Blood Cells into Peripheral Vein, Percutaneous Approach (ICD-10-PCS; principal; 2021-12-07)
PROC: 05HA33Z Insertion of Infusion Device into Left Brachial Vein, Percutaneous Approach (ICD-10-PCS; 2021-12-07)
DX: K62.5 Hemorrhage of anus and rectum (principal); D62 Acute posthemorrhagic anemia; E44.0 Moderate protein-calorie malnutrition; Z20.822 Contact with and (suspected) exposure to COVID-19; Z85.51 Personal history of malignant neoplasm of bladder; Z90.79 Acquired absence of other genital organ(s); Z90.6 Acquired absence of other parts of urinary tract; I10 Essential (primary) hypertension; E11.9 Type 2 diabetes mellitus without complications; D72.829 Elevated white blood cell count, unspecified; R79.89 Other specified abnormal findings of blood chemistry; E88.09 Other disorders of plasma-protein metabolism, not elsewhere classified; K59.00 Constipation, unspecified
CPT/HCPCS: 36410; 36415; 70450-TC; 71045-TC; 80048-TC; 80053-TC; 80076-TC; 82962-TC; 83735-TC; 84100-TC; 84484-TC; 85025-TC; 85027-TC; 85730-TC; 86850-TC; 87081-TC; 94799-TC; C9803; G0378; J1815; J2405; J3475; J7030; J7040; J7050; P9016; Q9967